=== PATIENT | male | born 1965 | race Caucasian/White ===

== ENCOUNTER 2018-08-02 11:26 | Inpatient (IN) | payer MEDICAID ==
[~2018-08-02] VITALS: Ht 177.8 cm; Wt 46.3 kg
--- NOTE | 2018-08-02 11:27 | NUR ---
WALLACE LEIJA, CURRENTLY AWAITING BED
--- NOTE | 2018-08-02 11:30 | NUR ---
PT TAKEN TO BED 2 BY EMS CREW
[2018-08-02 11:45] VITALS: BP 119/98
--- NOTE | 2018-08-02 11:53 | NUR ---
PT BIB EMS, C/O "ALOC." CAREGIVER AT BEDSIDE, PT AT BASELINE NOW, AWAKE, ALERT, ANSWERING QUESTIONS APPROPRIATELY. PT HAS SPEECH IMPEDIMENT, NORMAL PER CAREGIVER.
--- NOTE | 2018-08-02 11:56 | NUR ---
PT TAKEN TO CT VIA [facility]SM[facility]
--- NOTE | 2018-08-02 12:00 | NUR ---
PT TO CT WITH GRAZYNA AND RN X 2, HAD TWO VOMITING EPISODES. AIRWAY MAINTAINED. PROVIDER NOTIFIED. PT BROUGHT BACK TO ED, PLACED ON MONITOR. WILL MEDICATE ORDERED.
[2018-08-02] MEDS ORDERED: ONDANSETRON 4 MG/2 ML VIAL IVP ONE (12:10)
--- NOTE | 2018-08-02 12:14 | NUR ---
PT RETURNED FROM CT
[2018-08-02] MEDS ORDERED: BENZ-248 PO (12:40)
[2018-08-02] MEDS ORDERED: MULT-405 PO (12:40)
[2018-08-02] MEDS ORDERED: CRAN500T PO (12:40)
[2018-08-02] MEDS ORDERED: NA P133E RC (12:40)
[2018-08-02] MEDS ORDERED: RISP0.5T3 PO (12:40)
[2018-08-02] MEDS ORDERED: BACL10TA4 PO (12:40)
[2018-08-02] MEDS ORDERED: VITD1000 PO (12:40)
[2018-08-02] MEDS ORDERED: BISA5ECT43 PR (12:40)
[2018-08-02] MEDS ORDERED: ACET-2619 PO (12:40)
[2018-08-02] MEDS ORDERED: OSC500 PO (12:40)
[2018-08-02] MEDS ORDERED: TRAV2.5S OP (12:40)
[2018-08-02] MEDS ORDERED: IBUP-1842 PO (12:40)
[2018-08-02 12:59] LABS: HEMATOCRIT 47.7 % (36-52); HEMOGLOBIN 16.2 g/dL (12.0-18.0); LYMPHOCYTES # (AUTO) 0.4 K/uL (2.0-11.5); LYMPHOCYTES % (AUTO) 3.7 % (20.5-51.1); MEAN CORPUSCULAR HEMOGLOBIN 29 pg (27-31); MEAN CORPUSCULAR HGB CONC 34 g/dL (33-37); MEAN CORPUSCULAR VOLUME 85.9 fL (80-94); MONOCYTES # (AUTO) 0.2 K/uL (0.8-1.0); MONOCYTES % (AUTO) 1.9 % (1.7-9.3); NEUTROPHILS # (AUTO) 10.8 K/uL (1.8-7.7); NEUTROPHILS % (AUTO) 94.4 % (42.2-75.2); PLATELET COUNT (AUTO) 265 K/uL (140-450); RED BLOOD CELL COUNT(AUTO) 5.55 MIL/uL (4.20-6.10); RED CELL DISTRIBUTION WIDTH 13.3 % (11.6-13.7); WHITE BLOOD COUNT (AUTO) 11.5 K/uL (4.8-10.8)
[2018-08-02 13:17] LABS: PROTHROMBIN TIME 9.6 secs (10.8-13.4)
[2018-08-02 13:19] LABS: ANION GAP 12.3 (8-16); CARBON DIOXIDE 32.5 mmol/L (21-32); CREATININE 0.8 mg/dL (0.7-1.3); POTASSIUM 3.8 mmol/L (3.5-5.1)
[2018-08-02 13:31] LABS: ALBUMIN 4.3 g/dL (3.4-5.0); TOTAL BILIRUBIN 0.5 mg/dL (0.0-1.0)
[2018-08-02 13:48] LABS: APPEARANCE,URINE CLEAR (CLEAR); BILIRUBIN,URINE NEGATIVE (NEGATIVE); BLOOD, URINE NEGATIVE (NEGATIVE); COLOR,URINE YELLOW (YELLOW); LEUKOCYTE ESTERASE ,URINE NEGATIVE (NEGATIVE); NITRITE, URINE NEGATIVE (NEGATIVE); PH,URINE 6.5 (5.0-9.0); UGLUCOSE NEGATIVE (NEGATIVE)
[2018-08-02] MEDS ORDERED: NACL 0.9% 1,000 ML IV ONE ×2 (13:50→22:45)
[2018-08-02 14:03] LABS: RBC,URINE 0-5 (RARE) /HPF (0-5); WBC,URINE 0-5 (RARE) /HPF (0-5)
[2018-08-02] MEDS ORDERED: ZOLPIDEM 5 MG TAB PO PRN (14:30)
[2018-08-02] MEDS ORDERED: HYDROcodone/APAP 5/325 MG 1 TAB TAB PO PRN ×3 (14:30→16:35)
[2018-08-02] MEDS ORDERED: DOCUSATE SODIUM 100 MG GELCAP PO PRN (14:30)
[2018-08-02] MEDS ORDERED: ACETAMINOPHEN 325 MG TAB PO PRN ×3 (14:30→16:35)
[2018-08-02] MEDS ORDERED: LORazepam 2 MG/ML VIAL IM/IVP PRN (14:30)
[2018-08-02] MEDS ORDERED: DEXT 5% /NACL 0.9% 1,000 ML IV SCH (14:30)
[2018-08-02] MEDS ORDERED: METOCLOPRAMIDE 10 MG/2 ML INJ VIAL IVP SCH ×2 (14:30→17:00)
[2018-08-02] MEDS ORDERED: MORPHINE SULFATE 2 MG/ML SYR IVP PRN (14:30)
--- NOTE | 2018-08-02 15:04 | NUR ---
PT TAKEN TO TELE FLOOR BY RNS LINSEY
[2018-08-02 15:10] VITALS: BP 121/77
--- NOTE | 2018-08-02 15:10 | NUR ---
PATIENT ADMITTED TO CARE OF DR PECK IN TELE UNIT. REPORT GIVEN TO RN, NISH, PATIENT STABLE AT TIME OF TRANSFER.
--- NOTE | 2018-08-02 15:15 | NUR ---
PATIENT ARRIVED FROM ER VIA GURNEY AND SAFELY TRANSPORTED TO [facility] BED. NO DISTRESS NOTED. V/S STABLE. IV SITE INTACT, PATENT, ON SALINE LOCK. ABDOMEN SOFT. RESPIRATIONS EVEN, UNLABORED, ON ROOM AIR. ORIENTED PATIENT TO ROOM AND CALL LIGHT. REVIEWED PLAN OF CARE WITH PATIENT. SAFETY MEASURES IN PLACE, CALL LIGHT WITHIN REACH. WILL CONTINUE TO MONITOR.
--- NOTE | 2018-08-02 15:30 | NUR ---
PATIENT VOMITED X 2, ABOUT 300 ML. ER ALREADY GAVE ZOFRAN. SUCTIONED PATIENT ORALLY. WILL CONTINUE TO MONITOR.
[2018-08-02] MEDS ORDERED: IBUPROFEN 400 MG TAB PO PRN (16:30)
[2018-08-02] MEDS ORDERED: SODIUM PHOSPHATE 118 ML ENEM RC PRN (16:30)
[2018-08-02] MEDS ORDERED: BISACODYL 10 MG SUPP RC PRN (16:30)
[2018-08-02] MEDS ORDERED: LORazepam 2 MG/ML VIAL IVP PRN (16:35)
[2018-08-02] MEDS: BACLOFEN 10 MG TAB PO SCH (17:00)
[2018-08-02] MEDS: CALCIUM CARBONATE 500 MG TAB PO SCH (17:00)
[2018-08-02] MEDS: DEXT 5% /NACL 0.9% 1,000 ML IV SCH (17:13)
[2018-08-02] MEDS: ONDANSETRON 4 MG/2 ML VIAL IVP PRN (17:15)
--- NOTE | 2018-08-02 17:18 | NUR ---
PATIENT LYING DOWN IN BED COMFORTABLY. NO DISTRESS NOTED. COMPLAINS OF NAUSEA, NO VOMITING EPISODE AT THIS TIME. ZOFRAN GIVEN AND IVF STARTED. OTHER PO SCHEDULED MEDICATIONS DUE NOT GIVEN AT THIS TIME DUE TO VOMITING X2 EPISODE EARLIER. WILL CONTINUE TO MONITOR.
--- NOTE | 2018-08-02 19:30 | NUR ---
RECEIVED REPORT FROM DAYSHIFT NURSE AT BEDSIDE FOR CONTINUITY OF CARE. PT AAOX1. NO SOB NO S/S OF DISTRESS ON RA. PT IV NOTED RAC 20G NS 100ML/HR. BED LOWERED CALL LIGHT WITHIN REACH WILL CONTINUE TO MONITOR.
--- NOTE | 2018-08-02 19:35 | NUR ---
GAVE REPORT TO ICT SALES REPRESENTATIVE NURSE FOR CONTINUITY OF CARE. PATIENT IN STABLE CONDITION.
[2018-08-02 20:00] VITALS: BP 124/92
[2018-08-03] VITALS: BP 120/75
[2018-08-03] MEDS: ONDANSETRON 4 MG/2 ML VIAL IVP PRN (02:04)
[2018-08-03] MEDS: DEXT 5% /NACL 0.9% 1,000 ML IV SCH ×3 (03:06→23:39)
[2018-08-03 04:00] VITALS: BP 102/69
[2018-08-03 06:05] LABS: BASOPHILS % (AUTO) 0.1 % (0.0-2.0); EOSINOPHILS % (AUTO) 0.3 % (0.0-4.0); HEMATOCRIT 38.6 % (36-52); LYMPHOCYTES # (AUTO) 0.8 K/uL (2.0-11.5); LYMPHOCYTES % (AUTO) 7.3 % (20.5-51.1); MEAN CORPUSCULAR HEMOGLOBIN 29 pg (27-31); MEAN CORPUSCULAR HGB CONC 34 g/dL (33-37); MEAN CORPUSCULAR VOLUME 85.8 fL (80-94); MONOCYTES # (AUTO) 0.6 K/uL (0.8-1.0); MONOCYTES % (AUTO) 5.4 % (1.7-9.3); NEUTROPHILS # (AUTO) 10.1 K/uL (1.8-7.7); NEUTROPHILS % (AUTO) 86.9 % (42.2-75.2); PLATELET COUNT (AUTO) 222 K/uL (140-450); RED CELL DISTRIBUTION WIDTH 13.1 % (11.6-13.7); WHITE BLOOD COUNT (AUTO) 11.6 K/uL (4.8-10.8)
[2018-08-03 06:12] LABS: ANION GAP 10.8 (8-16); CARBON DIOXIDE 24.9 mmol/L (21-32); CREATININE 0.6 mg/dL (0.7-1.3); POTASSIUM 3.7 mmol/L (3.5-5.1)
[2018-08-03] MEDS ORDERED: SODIUM PHOSPHATE 118 ML ENEM RC PRN (07:21)
--- NOTE | 2018-08-03 07:29 | NUR ---
ENDORSED REPORT TO DAYSHIFT NURSE AT BEDSIDE FOR CONTINUITY OF CARE.
--- NOTE | 2018-08-03 07:30 | NUR ---
Received report from pm nurse Monica. Pt supine in bed, awake, verbally responsive, no c/o discomfort, respirations even & nonlabored. Call light within reach.
[2018-08-03 08:00] VITALS: BP 112/81
--- NOTE | 2018-08-03 08:21 | NUR ---
PATIENT HAS BEEN SCREENED AND CATEGORIZED HIGH NUTRITION RISK. PATIENT WILL BE SEEN WITHIN 1-2 DAYS OF ADMISSION. 08/03/18-08/04/[address]
[2018-08-03] MEDS: MULTIVITAMIN 1 TAB PO SCH (08:41)
[2018-08-03] MEDS: VITAMIN D 400 IU TAB PO SCH (08:42)
[2018-08-03] MEDS: BENZTROPINE 1 MG TAB PO SCH (08:42)
[2018-08-03] MEDS: CALCIUM CARBONATE 500 MG TAB PO SCH ×3 (08:42→17:26)
[2018-08-03] MEDS: risperiDONE 1 MG TAB PO SCH (08:42)
[2018-08-03] MEDS: BACLOFEN 10 MG TAB PO SCH ×3 (08:42→17:26)
[2018-08-03] MEDS ORDERED: CRANBERRY FRUIT EXTRACT 500 MG PO SCH (09:00)
[2018-08-03] MEDS ORDERED: TRAVOPROST OP SCH (09:00)
--- NOTE | 2018-08-03 10:04 | NUR ---
Pt in bed, awake, watching TV. No signs of distress, no c/o discomfort. Right ac IV intact with ongoing D5 NS @ 100ml/hr. Call light within reach.
[2018-08-03 12:00] VITALS: BP 112/78
--- NOTE | 2018-08-03 13:28 | NUR ---
08/03/18 RD INITIAL ASSESSMENT COMPLETED PLEASE REFER TO NUTRITION ASSESSMENT UNDER CARE ACTIVITY FOR ESTIMATED NUTRITIONAL NEEDS. 1. CONTINUE PUREE DIET TOLERATED 2. RECOMMEND PROSOURCE NOCARB BID TO AID IN MALNUTRITION 3. RD TO FOLLOW UP ON ADEQUATE PO INTAKE 4. RD TO FOLLOW-UP 3-5 DAYS, MODERATE RISK EM MURPHY, RD
[2018-08-03 16:00] VITALS: BP 105/67
--- NOTE | 2018-08-03 19:25 | NUR ---
Report given to pm nurse Griselda.
--- NOTE | 2018-08-03 19:26 | NUR ---
RECEIVED REPORT FROM AM NURSE AT BEDSIDE FOR CONTINUITY OF CARE. PT AAOX1, ABLE TO VERBALIZE NEEDS BUT SPEECH DELAYED. ON BEDREST. ON TELEMONITORING. NO SOB NO S/S OF DISTRESS ON RA. PT IV NOTED RAC 20G NS 100ML/HR. MAINTAINED BED AT LOWEST POSITION WITH BED ALARM.CALL LIGHT WITHIN REACH WILL CONTINUE TO MONITOR.
[2018-08-03 20:00] VITALS: BP 112/80
[2018-08-03] MEDS: LATANOPROST 0.005% OP 2.5 ML BTL OP SCH (21:16)
--- NOTE | 2018-08-03 22:00 | NUR ---
DR. MCKINLEY MADE ROUNDS AND SEEN PT.
--- NOTE | 2018-08-03 22:01 | NUR ---
DR. MCKINLEY SAID; CT ABDOMEN/PELVIS W/O CONTRAST SHOWED A 5 CM RECTOSIGMOID FECAL LOADING SURROUNDED BY LIQUID STOOL (FECAL IMPACTION). HE SAID TO INFORM DR. ANNE. NO NEW ORDERS FROM DR. MCKINLEY, ON THE INFECTIOUS SIDE.
--- NOTE | 2018-08-03 22:21 | NUR ---
TALKED TO ROCK MONTES DE OCA, NURSE PRACTIONER FOR DR. KAY ENRIQUEZ. PER, DR. MCKINLEY'S CONSULT. REFER BACK TO DR. Diamante ENRIQUEZ FOR THE FECAL IMPACTION. ROCK MONTES DE OCA, MOLDER MACHINE TENDER, ORDERED FOR FLEET ENEMA ONCE A DAY PRN AND COLACE 100 MG BID. WILL ENCODE PT ORDERS FOR DR. Diamante ENRIQUEZ PER MOLDER MACHINE TENDER. Addendum: 08/04/18 at 0721 by Griselda Wilde RN KAELYN COURTNEY THE NURSE PRACTIONER "ROCK BAILEY" NOT ROCK MONTES DE OCA
--- NOTE | 2018-08-03 23:34 | NUR ---
WILL ADMINISTER PER DR. MACE FLEET ENEMA DAILY PRN . CT ABDOMEN/PELVIS W/O CONTRAST REVEALED : FECAL IMPACTION 5 CM IN THE RECTOSIGMOID COLON SURROUNDED BY A LIQUID STOOL.
[2018-08-03] MEDS: SODIUM PHOSPHATE 118 ML ENEM RC PRN (23:39)
[2018-08-04] VITALS: BP 115/80
--- NOTE | 2018-08-04 00:55 | NUR ---
PT HAD A TOTAL OF 2X BM SOFT STOOL, MODERATE IN AMOUNT, YELLLOW COLOR AFTER FLEET ENEMA. CHANGED AND CLEANED WITH INFORMATION SECURITY SPECIALIST. WILL CONTINUE TO MONITOE
[2018-08-04 04:00] VITALS: BP 112/68
[2018-08-04 06:39] LABS: BASOPHILS % (AUTO) 0.3 % (0.0-2.0); EOSINOPHILS # (AUTO) 0.3 K/uL (0-0.4); EOSINOPHILS % (AUTO) 4.3 % (0.0-4.0); HEMATOCRIT 37.6 % (36-52); HEMOGLOBIN 12.9 g/dL (12.0-18.0); LYMPHOCYTES # (AUTO) 1.2 K/uL (2.0-11.5); LYMPHOCYTES % (AUTO) 20.4 % (20.5-51.1); MEAN CORPUSCULAR HEMOGLOBIN 29 pg (27-31); MEAN CORPUSCULAR HGB CONC 34 g/dL (33-37); MEAN CORPUSCULAR VOLUME 85.1 fL (80-94); MONOCYTES # (AUTO) 0.6 K/uL (0.8-1.0); MONOCYTES % (AUTO) 9.4 % (1.7-9.3); NEUTROPHILS % (AUTO) 65.6 % (42.2-75.2); PLATELET COUNT (AUTO) 204 K/uL (140-450); RED BLOOD CELL COUNT(AUTO) 4.42 MIL/uL (4.20-6.10); RED CELL DISTRIBUTION WIDTH 13.2 % (11.6-13.7); WHITE BLOOD COUNT (AUTO) 6.1 K/uL (4.8-10.8)
--- NOTE | 2018-08-04 06:43 | NUR ---
WILL ENDORSE TO NEXT SHIFT FOR CONTINUITY OF CARE. PT IN STABLE CONDITION
[2018-08-04 06:46] LABS: CARBON DIOXIDE 26.7 mmol/L (21-32); CREATININE 0.6 mg/dL (0.7-1.3); POTASSIUM 3.7 mmol/L (3.5-5.1)
--- NOTE | 2018-08-04 07:15 | NUR ---
Received report from pm nurse Griselda. Pt in bed, awake, watching TV, no c/o discomfort, no s/sx of distress. Call light within reach. R forearm IV intact with ongoing D5NS @ 100 ml/hr.
[2018-08-04 08:00] VITALS: BP 117/81
[2018-08-04] MEDS: DEXT 5% /NACL 0.9% 1,000 ML IV SCH ×2 (08:35→13:30)
[2018-08-04] MEDS: MULTIVITAMIN 1 TAB PO SCH (08:46)
[2018-08-04] MEDS: risperiDONE 1 MG TAB PO SCH (08:46)
[2018-08-04] MEDS: DOCUSATE SODIUM 100 MG GELCAP PO SCH ×2 (08:46→20:44)
[2018-08-04] MEDS: VITAMIN D 400 IU TAB PO SCH (08:46)
[2018-08-04] MEDS: BACLOFEN 10 MG TAB PO SCH ×3 (08:46→17:11)
[2018-08-04] MEDS: CALCIUM CARBONATE 500 MG TAB PO SCH ×3 (08:47→17:11)
[2018-08-04] MEDS: BENZTROPINE 1 MG TAB PO SCH (08:47)
[2018-08-04] MEDS ORDERED: DOCUSATE SODIUM 250 MG GELCAP PO SCH (09:00)
[2018-08-04 12:00] VITALS: BP 119/80
[2018-08-04] MEDS: SODIUM PHOSPHATE 118 ML ENEM RC PRN (13:12)
--- NOTE | 2018-08-04 13:12 | NUR ---
Fleet enema administered pr for constipation. No fecal impaction present in rectal vault. Pt has no c/o GI discomfort. Pt repositioned to right-side lying position. Call light within reach.
--- NOTE | 2018-08-04 14:00 | NUR ---
Pt with mod loose brown BM. Pericare provided. Pt repositioned. No c/o discomfort, no signs of distress. Call light within reach. R forearm IV intact with ongoing D5NS @ 100ml/hr.
--- NOTE | 2018-08-04 15:50 | NUR ---
Forest Fire Management Officer Note: I called and spoke with David Fregoso , he stated he is patient's case packer and sealer at [facility]. David informed me [facility] medical director oversees patient's medical care and signs patient's medical consents. Addendum: 08/04/18 at 1553 by Jamia Avalos SS Per David, patient does not have any family nor is conserved.
[2018-08-04 16:00] VITALS: BP 117/68
--- NOTE | 2018-08-04 17:50 | NUR ---
Pt resting in bed, awake, verbally responsive, no c/o discomfort, no signs of distress. R ac iv intact with ongoing D5NS @ 100ml/hr. Call light within reach.
--- NOTE | 2018-08-04 19:15 | NUR ---
Report given to pm nurse Perez.
--- NOTE | 2018-08-04 19:30 | NUR ---
RECEIVED REPORT FROM DAYSHIFT NURSE AT BEDSIDE FOR CONTINUITY OF CARE. PATIENT IS AWAKE, RESPIRATION EVEN UNLABORED ON ROOM AIR. NO DISTRESS NOTED. SKIN IS WARM AND DRY. IV PATENT AND INTACT. SAFETY PRECAUTION IN PLACE. PLAN OF CARE WAS REVIEWED AND DISCUSSED. BED IS AT LOW POSITION. CALL LIGHT WITHIN REACH.
[2018-08-04 20:00] VITALS: BP 111/74
--- NOTE | 2018-08-04 20:00 | NUR ---
PATIENT WAS AWAKE, RESPIRATION EVEN UNLABORED ON ROOM AIR. VITAL SIGNS STABLE. NO DISTRESS NOTED. MEDICATION WERE GIVEN PER ORDER. CALL LIGHT WITHIN REACH. WILL CONTINUE TO MONITOR.
[2018-08-04] MEDS: LATANOPROST 0.005% OP 2.5 ML BTL OP SCH (20:37)
[2018-08-05] VITALS: BP 119/75
--- NOTE | 2018-08-05 | NUR ---
PATIENT IS SLEEPING RESPIRATION EVEN UNLABORED ON ROOM AIR. NO DISTRESS NOTED AT THIS TIME. CALL LIGHT WITHIN REACH. WILL CONTINUE TO MONITOR.
[2018-08-05] MEDS: DEXT 5% /NACL 0.9% 1,000 ML IV SCH ×2 (00:14→10:40)
[2018-08-05 04:00] VITALS: BP 90/52
--- NOTE | 2018-08-05 07:19 | NUR ---
ENDORSED PATIENT TO AM SHIFT FOR CONTINUITY OF CARE. PATIENT IS STABLE AT THIS TIME.
--- NOTE | 2018-08-05 07:20 | NUR ---
RECEIVED BEDSIDE REPORT FROM JENNI LAURENT AND JENNI GAYLE. PT STABLE, AWAKE, AND ALERT. ON FINAL INSPECTOR MOTORCYLES. NO SIGNS OF DISTRESS NOTED. NO REDNESS, SWELLING, OR INFLAMMATION NOTED ON IV SITE. BED IN LOW POSITION, BED ALARM ON. CALL REBOLLEDO WITHIN REACH. SAFETY MEASURES IN PLACE. PLAN OF CARE REVIEWED
[2018-08-05 08:00] VITALS: BP 135/84
[2018-08-05] MEDS: CALCIUM CARBONATE 500 MG TAB PO SCH ×2 (10:40→13:34)
[2018-08-05] MEDS: risperiDONE 1 MG TAB PO SCH (10:40)
[2018-08-05] MEDS: DOCUSATE SODIUM 100 MG GELCAP PO SCH (10:40)
[2018-08-05] MEDS: MULTIVITAMIN 1 TAB PO SCH (10:41)
[2018-08-05] MEDS: VITAMIN D 400 IU TAB PO SCH (10:41)
[2018-08-05] MEDS: BENZTROPINE 1 MG TAB PO SCH (10:41)
[2018-08-05] MEDS: BACLOFEN 10 MG TAB PO SCH ×2 (10:41→13:34)
--- NOTE | 2018-08-05 10:42 | NUR ---
ADMINISTERED SCHEDULED MEDICATIONS. PT TOLERATED WELL. NO OTHER NEEDS AT THIS TIME.
--- NOTE | 2018-08-05 11:07 | NUR ---
PAGED KAY MCNAMARA (#[phone]) TO KNOW WHAT IS HIS PLAN FOR THE PT. AWAITING FOR CALL BACK.
--- NOTE | 2018-08-05 11:15 | NUR ---
SPOKE WITH Diamante MCNAMARA, STATED HE WILL COME TO SEE PT TODAY.
[2018-08-05 12:00] VITALS: BP 125/78
--- NOTE | 2018-08-05 13:35 | NUR ---
ADMINISTERED SCHEDULED MEDICATIONS. PT TOLERATED WELL.
--- NOTE | 2018-08-05 15:08 | NUR ---
CALLED [facility] AND SPOKE WITH RENATA (#[phone]), SHE STATED THAT PT WILL BE PICKED UP BY [facility] IN AN HOUR. Addendum: 08/05/18 at 1515 by Frances Ruiz RN CHIRAG MADE AWARE.
--- NOTE | 2018-08-05 16:00 | NUR ---
PT STABLE, AWAKE, AND ALERT. AWAITING TO BE PICKED UP BY CAREGIVER.
--- NOTE | 2018-08-05 18:00 | NUR ---
D/C INSTRUCTIONS AND PAPERWORKS GIVEN TO CAREGIVER AND PT, CAREGIVER VERBALIZED UNDERSTANDING. QUESTIONS AND CONCERNS WERE ANSWERED. DISCONTINUED IV, CATHETER TIP INTACT, BLEEDING CONTROLLED. PT STABLE, AWAKE, AND ALERT. ESCORTED PT AND CAREGIVER TO THE LOBBY.
== END 2018-08-05 18:00 | DRG 347 ==
LOC: MED 11:26 → MTU 14:50
PROVIDERS: ADMIT Preventive Medicine Preventive Medicine/Occupational Environmental Medicine; ATTEND Preventive Medicine Preventive Medicine/Occupational Environmental Medicine
DX: M47.817 Spondylosis without myelopathy or radiculopathy, lumbosacral region (principal); G93.41 Metabolic encephalopathy; E87.2 Acidosis; G80.0 Spastic quadriplegic cerebral palsy; M43.17 Spondylolisthesis, lumbosacral region; N20.0 Calculus of kidney; K56.41 Fecal impaction; D72.829 Elevated white blood cell count, unspecified; R19.7 Diarrhea, unspecified; R73.9 Hyperglycemia, unspecified; E55.9 Vitamin D deficiency, unspecified; H40.9 Unspecified glaucoma; H54.8 Legal blindness, as defined in USA; F79 Unspecified intellectual disabilities; M19.90 Unspecified osteoarthritis, unspecified site; Z79.899 Other long term (current) drug therapy; R53.81 Other malaise
CPT/HCPCS: 36415; 70450; 71045; 80048; 80053; 81001; 83605; 83690; 83880; 84484; 85025; 85610; 85651; 85730; 86140; 87040; 87081; 87086; 93005; 96374; 99285; C1758; J2405; J7030; J7042; Q0092

== ENCOUNTER 2022-03-15 09:48 | Emergency (ER) | payer MEDICAID ==
[~2022-03-15] VITALS: Ht 149.9 cm; Wt 63.5 kg
[~2022-03-15 09:48] MED LIST: ACET-2619 PO; BACL10TA4 PO; BENZ-315 PO; BISA-188 PR; CHOL100084 PO; CRAN500T4 PO; IBUP-1842 PO; MULT-405 PO; NA P133E RC; OSC500 PO; RISP0.5T3 PO; TRAV2.5S OP
[2022-03-15 10:00] VITALS: BP 141/92
--- NOTE | 2022-03-15 10:07 | NUR ---
DR MCCULLOUGH AT BEDSIDE FOR EVAL
--- NOTE | 2022-03-15 10:19 | NUR ---
PT TAKEN TO CT SCAN VIA WC WITH CAREGIVER
--- NOTE | 2022-03-15 10:26 | NUR ---
57 Y/O MALE BIB CAREGIVER C/O NOSE AND FACIAL PAIN, NOTED BRUISE ON NOSE S/P FALLING FORWARD OFF W/C, DENIES HEAD/NECK INJURY OR LOC. PER CAREGIVER WITNESSED FALL. PMH: BLIND, OSTEOPENIA, HLD, SPASTIC QUAD NKA
[2022-03-15] MEDS ORDERED: IBUP-2213 PO (11:04)
[2022-03-15] MEDS ORDERED: AMOX1TAB8 PO (11:04)
--- NOTE | 2022-03-15 11:11 | NUR ---
Patient discharged with v/s stable. Written and verbal after care instructions ABOUT NASAL FRACTURE given and explained. Patient alert, oriented and verbalized understanding of instructions. Wheel Chair Assisted with by caregiver. All questions addressed prior to discharge. ID band removed. Patient advised to follow up with PMD. Rx of AMOX-CLAV [id number] AND MOTRIN given. Patient educated on indication of medication including possible reaction and side effects. Opportunity to ask questions provided and answered.
== END 2022-03-15 11:11 | disposition home or self-care (01) ==
LOC: MED 09:48
DX: S02.2XXA Fracture of nasal bones, initial encounter for closed fracture (principal); W18.30XA Fall on same level, unspecified, initial encounter; Y93.89 Activity, other specified; Y92.89 Other specified places as the place of occurrence of the external cause; Y99.8 Other external cause status
CPT/HCPCS: 70450; 70486; 99284